=== PATIENT | female | born 1975 | race Caucasian/White ===

== ENCOUNTER 2024-07-31 03:15 | Emergency (ER) | payer MEDICAID, SELFPAY ==
[2024-07-31 03:16] VITALS: BMI 30.2
[2024-07-31 03:27] VITALS: BP 128/74; PULSE 66; RESP 18; TEMP 36.5; O2SAT 97
--- NOTE | 2024-07-31 03:36 | EDNOTE_ITS ---
ED Skin Abcess FB-RME/HPI General Chief complaint: Skin/Abscess/Foreign Body Stated complaint: Swollen face, thinks she got bit by spider Time Seen by Provider: 07/31/24 03:17 Arrival date/time: 07/31/24 03:15 49 year old female present to emergency room with c/o of left facial swelling and pain for 1 day. LOCATION: teeth SEVERITY: Symptoms are described as being severe with limitations on activities of daily living CONTEXT: The patient is unable to identify any inciting events. DURATION/TIMING: The symptoms started approximately 1 day ASSOCIATED SYMPTOMS: The patient is unable to identify any other associated symptoms. MODIFYING FACTORS: The patient is unable to identify any alleviating or aggra vating symptoms. PERTINENT ROS: no fevers, no cough, n no chest pain/shortness of breath no nausea,vomiting, diarrhea, no dizziness/headache no rash no loc/syncope episode no difficulty swallowing REVIEW OF SYSTEMS: See History of Present Illness - with the exception of those mentioned in the history of present illness, all other systems reviewed and reported as negative GENERAL: In general the patient is awake, interactive, in an emergency department gurney. HEAD/EYES/EARS/NOSE/THROAT: + left cheek mild swelling + upper teeth gum tenderness, no airway obstruction normo-cephalic, atraumatic, mucus membranes are moist, anicteric, palpebral conjunctiva is pink, trachea is midline. CARDIOVASCULAR: regular rate and regular rhythm, no murmurs, heart sounds are not distant, strong pulses in all four extremities that are equal and symmetric bilateral upper and lower extremities, normal capillary refill. CHEST/PULMONARY: normal chest rise and fall, good air movement, clear to auscultation bilaterally, normal inspiratory to expiratory ratios without evidence of respiratory distress. NECK: No midline/Paraspinal tenderness, no step off ROM/Strenght intact No Kernig and bruzinski sign. No trauma SKIN: warm, dry, well-perfused, no jaundice, no rash, no telangiectasias or petechia. PSYCH: calm, cooperative, no evidence of psychosis or agitation Related Data Previous Rx's ?Medication ?Instructions ?Recorded amoxicillin 875 mg-potassium 1 tab PO BID #14 tabs 12/07 clavulanate 125 mg tablet naproxen 500 mg tablet (Naprosyn) 500 mg PO BID #30 ta bs 09/23/21 ibuprofen 800 mg tablet 800 mg PO TID PRN pain #30 t abs 11/01/21 clindamycin HCl 300 mg capsule 300 mg PO QID 10 days # 40 caps 07/31/24 Allergies Allergy/AdvReac Type Severity Reaction Status Date / Time No Known Allergies Allergy Verified 11/01/21 11:19 Course Course Course Narrative: The Pt presents with c/f a suspected dental infection, though may also represent a simple dental mac. The Pt is afebrile and well appearing, without evidence of periapical abscess, ANUG, deep space neck infxn, John?s, or mastoiditis. No trismus or airway involvement. Discussed supportive care and recommended urgent follow up with a dentist. Rx: clindamycin 300mg qid for 10 days? Quality Measures none Orders Category Date Time Status Clindamycin [Cleocin] Med 07/31/24 03:32 Once 300 mg PO X1 ONE Ketorolac Inj [Toradol Inj] Med 07/31/24 03:32 Once 30 mg IM X1 ONE Vital Signs Vital signs: Vital Signs Temperature 97.7 F 07/31/24 03:27 Pulse Rate 66 07/31/24 03:27 Respiratory Rate 18 07/31/24 03:27 Blood Pressure 128/74 07/31/24 03:27 Pulse Oximetry (%) 97 07/31/24 03:27 Oxygen Delivery Method Room Air 07/31/24 03:27 Skin / Abscess / Foreign Body Patient data External records reviewed:: [facility] previous records Clinical information provided by:: patient Social determinants that could affect healthcare access:: none Patient has the following chronic illnesses:: n/a How is presenting disease/condition affected by chronic disease/condition?: no chronic disease Evaluation data The following diagnostics were reviewed and interpreted by me:: other (specify) (n/a ) Lab and/or radiology exams considered but not ordered:: n/a Interpretation Summary: n/a Medications / Prescriptions Medications or Prescriptions considered but not ordered:: n/a Medication administrations:: Medication Administration History Clindamycin HCl (Clindamycin 150 Mg Capsule) 300 mg PO X1 ONE Stop: 07/31/24 03:33 Ketorolac Tromethamine (Ketorolac Inj 60 Mg/2 Ml Vial) 30 mg IM X1 ONE Stop: 07/31/24 03:33 as stated above Consultations Consultation(s) initiated? (list below): No Diagnosis Skin/Abscess Differential Diagnosis: cellulitis, contact dermatitis and other (dental infection ) Most likely diagnosis given after review of the tests above:: dental infection Admission Indicated Admission indicated?: not indicated Admission Request Was there a request for admission?: No Disposition Plan Disposition Plan: Discharge Discharge Attestation Discharge Attestation: The patient and all family members were given an opportunity to ask questions and understood the discharge instructions. Discharge instructions specifically effects, indications for sooner follow up or return to the emergency department, and the expected course of current diagnosis. Patient condition: Stable Discharge Plan Plan Patient Disposition: HOME (Self Care) Health Concerns: Follow up with dentist as directed Return to ED if symptoms worsen Prescriptions/Referrals Prescriptions/Med Rec: New clindamycin HCl 300 mg capsule 300 mg PO QID 10 Days Qty: 40 0RF No Action amoxicillin-pot clavulanate 875-125 mg tablet 1 tab PO BID Qty: 14 0RF naproxen [Naprosyn] 500 mg tablet 500 mg PO BID Qty: 30 0RF ibuprofen 800 mg tablet 800 mg PO TID PRN (Reason: pain) Qty: 30 0RF Problem List Clinical Impression: Dental infection Patient/Caregiver Discharge Instructions Education Materials: ED Abscess Antibiotic ... Print Language: Korean Stand Alone Forms: [facility] Award Info., Patient Portal Info Letter
[2024-07-31] MEDS: KETOROLAC INJ 60 MG/2 ML VIAL 30 MG IM (03:43)
[2024-07-31] MEDS: CLINDAMYCIN 150 MG CAPSULE 300 MG PO (03:43)
== END 2024-07-31 12:04 | disposition home or self-care (01) ==
LOC: SERX 06:30
PROVIDERS: Emergency Provider Emergency Medicine; PCP Family Medicine
DX: K04.7 Periapical abscess without sinus (principal)
CPT/HCPCS: 96372; 99283; J1885; A9270

== ENCOUNTER 2024-08-01 09:11 | Emergency (ER) | payer MEDICAID, SELFPAY ==
[2024-08-01 09:38] VITALS: BP 137/84; PULSE 66; RESP 16; TEMP 36.5; O2SAT 97; BMI 29.6
--- NOTE | 2024-08-01 09:47 | PD.EDDENTL ---
ED Dental RME/HPI General Chief complaint: Dental/Oral/Throat Stated complaint: LEFT FACIAL SWELLING Arrival date/time: 08/01/24 09:11 Related Data Previous Rx's ?Medication ?Instructions ?Recorded amoxicillin 875 mg-potassium 1 tab PO BID #14 tabs 09/23/21 clavulanate 125 mg tablet naproxen 500 mg tablet (Naprosyn) 500 mg PO BID #30 tabs 09/23/21 ibuprofen 800 mg tablet 800 mg PO TID PRN pain #30 tabs 11/01/21 clindamycin HCl 300 mg capsule 300 mg PO QID 10 days #40 caps 07/31/24 Allergies Allergy/AdvReac Type Severity Reaction Status Date / Time No Known Allergies Allergy Verified 08/01/24 09:14 Course Orders Category Date Time Status Ketorolac Inj [Toradol Inj] Med 08/01/24 09:46 Discontinued 30 mg IM X1 ONE cefTRIAXone [Rocephin] 1,000 mg Med 08/01/24 09:46 Discontinued Lidocaine 1% 20 ml [Xylocaine 1% 20 ML] 2.1 ml IM X1 Vital Signs Vital signs: Vital Signs Temperature 97.7 F 08/01/24 09:38 Pulse Rate 66 08/01/24 09:38 Respiratory Rate 16 08/01/24 09:38 Blood Pressure 137/84 H 08/01/24 09:38 Pulse Oximetry (%) 97 08/01/24 09:38 Oxygen Delivery Method Room Air 08/01/24 09:38 Dental / Oral Medications / Prescriptions Medication administrations:: Medication Administration History Ceftriaxone Sodium 1,000 mg/ (Lidocaine HCl 2.1 ml) 0 mg IM X1 ONE Stop: 08/01/24 09:47 Ketorolac Tromethamine (Ketorolac Inj 60 Mg/2 Ml Vial) 30 mg IM X1 ONE Stop: 08/01/24 09:47 Discharge Plan Prescriptions/Referrals Prescriptions/Med Rec: No Action amoxicillin-pot clavulanate 875-125 mg tablet 1 tab PO BID Qty: 14 0RF naproxen [Naprosyn] 500 mg tablet 500 mg PO BID Qty: 30 0RF ibuprofen 800 mg tablet 800 mg PO TID PRN (Reason: pain) Qty: 30 0RF clindamycin HCl 300 mg capsule 300 mg PO QID 10 Days Qty: 40 0RF Patient/Caregiver Discharge Instructions Print Language: Tajik
--- NOTE | 2024-08-01 09:49 | PD.EDRME ---
Rapid Medical Screening Exam [facility] Arrival date/time: 08/01/24 09:11 49-year-old female with no known medical history presents to the emergency room with a chief complaint of tenderness and pain to the left upper tooth. Patient was seen here yesterday and was prescribed antibiotics and discharged. Patient states she followed up with her primary care provider yesterday and has a referral to see a dentist in [place], but states due to her transportation she is unable to go follow-up with this appointment. I have greeted and performed a focused initial assessment of this patient. A comprehensive ED assessment and evaluation of the patient, analysis of all test results, and completion of the medical decision making process will be conducted by additional ED providers. Chief Complaint: Dental/Oral/Throat Vital signs: Vital Signs Temperature 97.7 F 08/01/24 09:38 Pulse Rate 66 08/01/24 09:38 Respiratory Rate 16 08/01/24 09:38 Blood Pressure 137/84 H 08/01/24 09:38 Pulse Oximetry (%) 97 08/01/24 09:38 Oxygen Delivery Method Room Air 08/01/24 09:38 Vital signs reviewed by provider: Yes
[2024-08-01] MEDS: cefTRIAXone 1,000 MG, LIDOCAINE 1% 20 ML 2.1 ML IM (10:58)
[2024-08-01] MEDS: KETOROLAC INJ 60 MG/2 ML VIAL 30 MG IM (10:58)
--- NOTE | 2024-08-01 13:03 | PD.EDDENTL ---
ED Dental RME/HPI General Chief complaint: Dental/Oral/Throat Stated complaint: LEFT FACIAL SWELLING Time Seen by Provider: 08/01/24 12:59 Arrival date/time: 08/01/24 09:11 RME / HPI RME / HPI Narrative: 49-year-old female with no known medical history presents to the emergency room with a chief complaint of tenderness and pain to the left upper tooth. Patient was seen here yesterday and was prescribed antibiotics and discharged. Patient states she followed up with her primary care provider yesterday and has a referral to see a dentist in [place], but states due to her transportation she is unable to go follow-up with this appointment. Patient denies any fever. Denies any difficulty swallowing. No medication was taken prior to arrival. Related Data Previous Rx's ?Medication ?Instructions ?Recorded amoxicillin 875 mg-potassium 1 tab PO BID #14 tabs 09/23/21 clavulanate 125 mg tablet naproxen 500 mg tablet (Naprosyn) 500 mg PO BID #30 tabs 09/23/21 ibuprofen 800 mg tablet 800 mg PO TID PRN pain #30 tabs 11/01/21 clindamycin HCl 300 mg capsule 300 mg PO QID 10 days #40 caps 07/31/24 Allergies Allergy/AdvReac Type Severity Reaction Status Date / Time No Known Allergies Allergy Verified 08/01/24 09:14 Review of Systems Review of Systems Narrative Review of Systems: Review of system reviewed and within normal limits except mentioned in HPI ED Exam Narrative Physical exam: VITAL SIGNS: Reviewed. GENERAL APPEARANCE: Alert and interactive, follows commands, no acute distress, HEAD AND FACE: Non-traumatic. ENT: PERRL, pink conjunctivitis, eyelid no trauma, Mucous membrane moist. Dental cavity noted left upper premolar, with tenderness and swelling, nonfluctuant NECK: Supple, nontender, no nuchal rigidity. CHEST: No tenderness, no crepitus, no paradoxical movement, no retractions. LUNGS: Clear, well ventilated, symmetric, no rales, no wheezing, no ronchi, no stridor, good breath sounds bilaterally. HEART: Regular rate, regular rhythm, no murmur, no gallops. ABDOMEN: Soft, positive bowel sounds, nondistended, no guarding, nontender, no rebound, no masses, RECTAL: Deferred. GENITAL: Deferred. NEUROLOGICAL: Gross motor function intact sensory function intact, Appropriate for age. MUSCULOSKELETAL: low back nontender, full range of motion. EXTREMITIES: Nontender, full range of motion. SKIN: Color pink, dry, no rash, no lacerations, no abrasions, no contusions. LYMPHATICS: Deferred. Course Quality Measures none Orders Category Date Time Status Ketorolac Inj [Toradol Inj] Med 08/01/24 09:46 Discontinued 30 mg IM X1 ONE cefTRIAXone [Rocephin] 1,000 mg Med 08/01/24 09:46 Discontinued Lidocaine 1% 20 ml [Xylocaine 1% 20 ML] 2.1 ml IM X1 Vital Signs Vital signs: Vital Signs Temperature 97.7 F 08/01/24 09:38 Pulse Rate 66 08/01/24 09:38 Respiratory Rate 16 08/01/24 09:38 Blood Pressure 137/84 H 08/01/24 09:38 Pulse Oximetry (%) 97 08/01/24 09:38 Oxygen Delivery Method Room Air 08/01/24 09:38 Dental / Oral MDM Narrative MDM Narrative:: 49-year-old female with no known medical history presents to the emergency room with a chief complaint of tenderness and pain to the left upper tooth. Patient was seen here yesterday and was prescribed antibiotics and discharged. Patient states she followed up with her primary care provider yesterday and has a referral to see a dentist in [place], but states due to her transportation she is unable to go follow-up with this appointment. Patient denies any fever. Denies any difficulty swallowing. The medication was taken prior to arrival. Patient was given Toradol and ceftriaxone with significant improvement of symptoms. Patient was advised to follow-up with her dentist in [place] patient told me that she will ask her friend to give her a ride. Incision and drainage done needed at this time. I did not see/feel any fluctuancy Patient data External records reviewed:: None Clinical information provided by:: patient Social determinants that could affect healthcare access:: none Patient has the following chronic illnesses:: None How is presenting disease/condition affected by chronic disease/condition?: no chronic disease Evaluation data The following diagnostics were reviewed and interpreted by me:: other (specify) Lab and/or radiology exams considered but not ordered:: None Interpretation Summary: None Medications / Prescriptions Medications or Prescriptions considered but not ordered:: None Medication administrations:: Medication Administration History Discontinued Medications Ceftriaxone Sodium 1,000 mg/ (Lidocaine HCl 2.1 ml) 0 mg IM X1 ONE Stop: 08/01/24 09:47 Last Admin: 08/01/24 10:58 Dose: 1,000 mg Documented By: GABRIELLA Comments: 1000 Ketorolac Tromethamine (Ketorolac Inj 60 Mg/2 Ml Vial) 30 mg IM X1 ONE Stop: 08/01/24 09:47 Last Admin: 08/01/24 10:58 Dose: 30 mg Documented By: GABRIELLA Toradol IM Consultations Consultation(s) initiated? (list below): No Diagnosis Dental Differential Diagnosis: gingival abscess, dental caries and dental abscess Most likely diagnosis given after review of the tests above:: Infected dental caries Admission Indicated Admission indicated?: not indicated Admission Request Was there a request for admission?: No Disposition Plan Disposition Plan: Discharge Discharge Attestation Discharge Attestation: The patient was given an opportunity to ask questions and understood the discharge instructions. Discharge instructions specifically effects, indications for sooner follow up or return to the emergency department, and the expected course of current diagnosis. Patient condition: Stable Discharge Plan Plan Patient Disposition: HOME (Self Care) Disposition Comment: Stable Prescriptions/Referrals Prescriptions/Med Rec: No Action amoxicillin-pot clavulanate 875-125 mg tablet 1 tab PO BID Qty: 14 0RF naproxen [Naprosyn] 500 mg tablet 500 mg PO BID Qty: 30 0RF ibuprofen 800 mg tablet 800 mg PO TID PRN (Reason: pain) Qty: 30 0RF clindamycin HCl 300 mg capsule 300 mg PO QID 10 Days Qty: 40 0RF Referrals: No Primary/Family,Physician [Primary Care Provider] - In 1 week Problem List Clinical Impression: Infected dental caries Patient/Caregiver Discharge Instructions Discharge Activity: activity as tolerated Education Materials: ED Dental Cavity Additional Instructions: Thank you for the opportunity for serving you today. You are stable for discharged . You are advised to: Follow-up with your dentist in 1 to 2 days Return to ED for worsening of symptoms Increase oral fluids Take medication as prescribed yesterday Print Language: Belizean Stand Alone Forms: [facility]sha Award Info., Patient Portal Info Letter
== END 2024-08-01 14:46 | disposition home or self-care (01) ==
PROVIDERS: Emergency Provider Emergency Medicine
DX: K02.9 Dental caries, unspecified (principal); K04.7 Periapical abscess without sinus
CPT/HCPCS: 96372; 99283; J0696; J1885; J3490

== ENCOUNTER 2024-09-07 22:32 | Emergency (ER) | payer MEDICAID, SELFPAY ==
--- NOTE | 2024-09-08 00:01 | PC.NURSE ---
no answer @[id number] when called to be seen and for vitals
--- NOTE | 2024-09-08 00:45 | PC.NURSE ---
N/A from lobby for registration
== END 2024-09-08 00:45 | disposition left against medical advice (07) ==
LOC: SERX 09-08 01:14
PROVIDERS: Emergency Provider Emergency Medicine
DX: Z53.21 Procedure and treatment not carried out due to patient leaving prior to being seen by health care provider (principal)